=== PATIENT | female | born 1955 | race Caucasian/White ===

== ENCOUNTER 2019-04-13 08:04 | Day surgery (SDC) | payer MEDICARE, OTHER ==
[~2019-04-13] VITALS: Ht 160 cm; Wt 83.5 kg
[~2019-04-13 08:04] MED LIST: CALCIUM 500 +1 EAC2 PO; CRUTCH4 USE; Crutch1 EACH MISC; DOCU100 PO; ESTR1; FISH1000 PO; GLUC500 PO; HYDACE5 PO; IBUP800 PO; LEVSOD100 PO; LEVSOD137 PO; MULVITMIND PO; NAPR500 PO; OMEP20ER PO; PROG100; ROSU10TA PO; UBID10; Ultram50 MG PO
== END 2019-04-13 10:14 | disposition home or self-care (01) ==
LOC: ORSCSDS 08:04
PROVIDERS: Surgery
PROC: 0DJD8ZZ Inspection of Lower Intestinal Tract, Via Natural or Artificial Opening Endoscopic (ICD-10-PCS; principal; 2019-04-13 09:30)
DX: R19.4 Change in bowel habit (principal); K57.30 Diverticulosis of large intestine without perforation or abscess without bleeding; E78.5 Hyperlipidemia, unspecified; E78.00 Pure hypercholesterolemia, unspecified; R19.7 Diarrhea, unspecified; K21.9 Gastro-esophageal reflux disease without esophagitis; E66.9 Obesity, unspecified; Z68.34 Body mass index [BMI] 34.0-34.9, adult; Z79.899 Other long term (current) drug therapy
CPT/HCPCS: J2704; J7120

== ENCOUNTER 2021-09-19 06:04 | Inpatient (IN) | payer MEDICARE, OTHER ==
[~2021-09-19] VITALS: Ht 160 cm; Wt 83.1 kg
[~2021-09-19 06:04] MED LIST changes: +CALCIUM CIT 311 EAC7 PO; -FISH1000 PO; +Fish Oil PO; +GINKGO60 MG PO; -MULVITMIND PO; -UBID10; +UBID10 PO; +[UNRECOGNIZED DRUG - OTHER] PO
--- NOTE | 2021-09-19 06:25 | NUR ---
PT ARRIVES WITH DAUGHTER RENA, WHO STAYED AT BEDSIDE. Ambulatory in Day Surgery. History, Chart, Medications and Allergies reviewed before start of procedure. Patient confirms NPO status and agrees with scheduled surgery. Pre-Op teaching done. Pt verbalizes understanding.
[2021-09-19] MEDS ORDERED: OMEP20ER PO (06:34)
--- NOTE | 2021-09-19 08:58 | NUR ---
09/19/21 0858 Yuni Lopez ASPIRATION OF GANGLION CYST ON RIGHT AC SHOULDER JOINT AT 0811. PT. TOLERATED WELL. SITE PREPPED WITH RUBBING ALCOHOL 70% AND PEROXIDE. ASPIRATION COMPLETED WITH 18 GUAGE NEEDLE AND 10CC SYRINGE. NERVE BLOCK OF LEFT SHOULDER AND ARM COMPLETED AT [address] ANDERS. PREPPED WITH CHOLRAHEXIDINE. PT. TOLERATED WELL.
--- NOTE | 2021-09-19 18:35 | NUR ---
SHIFT SUMMARY PT STATUS POST FOR L TOTAL SHOULDER REPLACEMENT. PT C/O NO PAIN AND SENSATION IS STARTING TO COME BACK IN HER FINGERS ON HER LEFT HAND. PT WORKED WITH PHYSICAL THERAPY AND DID WELL. PT IS ALSO VOIDING. VSS. WILL REPORT TO EVGENY BUTLER.
[2021-09-20 05:42] LABS: BASOPHILS ABSOLUTE AUTO 0.02 K/mm3 (0.00-0.23); BASOPHILS PERCENT AUTO 0 % (0-2); EOSINOPHILS ABSOLUTE AUTO 0.01 K/mm3 (0.00-0.68); EOSINOPHILS PERCENT AUTO 0 % (0-6); Hematocrit 32.3 % (33.0-51.0); Hemoglobin 10.7 g/dL (11.5-16.0); IMMATURE GRAN ABSOLUTE AUTO 0.04 K/mm3 (0.00-0.10); IMMATURE GRAN PERCENT AUTO 0 % (0-1); LYMPHOCYTES ABSOLUTE AUTO 1.11 K/mm3 (0.84-5.20); LYMPHOCYTES PERCENT AUTO 12 % (21-46); MONOCYTES ABSOLUTE AUTO 0.54 K/mm3 (0.16-1.47); MONOCYTES PERCENT AUTO 6 % (4-13); Mean Corpuscular HGB 31.5 pg (26.0-34.0); Mean Corpuscular HGB Conc 33.1 g/dL (31.5-36.5); Mean Corpuscular Volume 95 fL (80-100); Mean Platelet Volume 9.1 fL (9.1-12.4); NEUTROPHILS PERCENT AUTO 82 % (41-73); Platelet Count 196 K/mm3 (150-400); RDW Coefficient Variation 12.7 % (11.7-14.2); RDW Standard Deviation 43.8 fL (35.1-46.3); White Blood Cell Count 9.62 K/mm3 (4.00-11.30)
[2021-09-20 06:03] LABS: Bun/Creatinine Ratio 17.3 (12.0-20.0); Calcium, Blood 8.6 mg/dL (8.5-10.1); Creatinine, Blood 0.99 mg/dL (0.40-1.00); Potassium, Blood 4.6 mmol/L (3.5-5.5)
--- NOTE | 2021-09-20 06:19 | NUR ---
Pt is in bed at this time and is resting comfortably in stable condition. Alert and oriented, denies pain. Assisted with care and ADL, assisted with bathroom and toileting needs. Call light given to her and reminded to call for help when assistance is needed as she is monitored.
--- NOTE | 2021-09-20 10:28 | NUR ---
Pt. discharged at 1005. Family here to take pt. home. DC instructions explained to patient and copy given, pt. verbalize understanding of dc instructions. Polar Pack sent with pt. along with personal belongings and hodan brewer. changes. w/c to exit.
== END 2021-09-20 10:22 | disposition home or self-care (01) | DRG 483 ==
LOC: SURS 06:04 → PRE IP 07:30 → SURS 11:12
PROVIDERS: ADMIT Orthopaedic Surgery
PROC: 0R9G3ZZ Drainage of Right Acromioclavicular Joint, Percutaneous Approach (ICD-10-PCS; 2021-09-19)
PROC: 0RRJ00Z Replacement of Right Shoulder Joint with Reverse Ball and Socket Synthetic Substitute, Open Approach (ICD-10-PCS; principal; 2021-09-19 07:30)
DX: M19.012 Primary osteoarthritis, left shoulder (principal); M67.411 Ganglion, right shoulder; M85.80 Other specified disorders of bone density and structure, unspecified site; K21.9 Gastro-esophageal reflux disease without esophagitis; E78.5 Hyperlipidemia, unspecified; E89.0 Postprocedural hypothyroidism; Z79.899 Other long term (current) drug therapy; Z88.0 Allergy status to penicillin; Z85.850 Personal history of malignant neoplasm of thyroid
CPT/HCPCS: 36415; 73030; 80048; 83735; 85025; 97110; 97161; 97530; A9270; C1713; C1776; J0171; J0735; J1100; J1885; J2250; J2370; J2405; J2704; J2795; J3010; J3370; J7120